=== PATIENT | male | born 1960 | race Caucasian/White ===

== ENCOUNTER 2023-09-16 13:16 | Emergency (ER) | payer BC, SELFPAY ==
[2023-09-16 13:18] VITALS: BP 223/134; PULSE 127; RESP 22; TEMP 37.7; O2SAT 98; BMI 37.3
--- NOTE | 2023-09-16 13:38 | EKG12_ITS ---
Test Reason : CP Blood Pressure : / mmHG Vent. Rate : 114 BPM Atrial Rate : 114 BPM P-R Int : 120 ms QRS Dur : 084 ms QT Int : 332 ms P-R-T Axes : 045 037 066 degrees QTc Int : 457 ms Sinus tachycardia Otherwise normal ECG Confirmed by BERRY AGUILAR, JAMES ([id number]), editor in chief GRAY ELISE ([id number]) on 09/18/2023 11:55:34 AM Referred By: Confirmed By:JAMES SMART MD
--- NOTE | 2023-09-16 13:41 | EX.ED.DYSGE1 ---
HPI History of Present Illness Chief Complaint: Chest Pain Narrative Narrative: Patient is a 63-year-old male who is presenting to the ER with chest tightness, elevated blood pressure and tachycardia. Patient stopped taking his blood pressure medication because he did not like the side effects. Patient stopped taking his medication several months ago. Patient stated it caused some nausea and feeling tired. Patient does a lot of driving during the day, did not like the way it made him feel, so he stopped taking it 2 months ago. Patient lifted 5-6 bags of 40-50 pound salt bags yesterday which is not something he normally does. Patient had no pain last evening. Patient did develop the pain around 9:00 this morning. Patient feels better with his right arm raised above his head, he has no rash. Patient has no headache or neck pain. No chest pain or heavy tightness, patient states that the right-sided chest discomfort. No radiation. No nausea, vomiting, diarrhea, any other acute complaints. Patient's PCP is not aware the patient stopped taking his blood pressure medications several months ago. Patient's blood pressure initially was very elevated, heart rate was elevated as well. Patient daughter at bedside. Patient is not diabetic, no cholesterol. Patient has never had a stress test or echocardiogram previously. Patient is not certain which medications he is supposed to be taking, he supposed be taking a type of blood pressure med and a diuretic, 2 tablets that he is not taking any longer for the past several months. PFSH PFSH Allergy/AdvReac Type Severity Reaction Status Date / Time Penicillins AdvReac Mild Nausea Verified 09/16/23 14:16 Social History Smoking Status: Never smoker ROS ROS ED ROS Narrative REVIEW OF SYSTEMS: Unless otherwise stated in this report the patient's positive and negative responses for review of systems for constitutional, eyes, ENT, cardiovascular, respiratory, gastrointestinal, neurological, , musculoskeletal, and integument systems and related systems to the presenting problem are either stated in the history of present illness or were not pertinent or were negative for the symptoms and/or complaints related to the presenting medical problem. EXAM Physical Exam Narrative Exam Narrative: Vital signs reviewed and patient is not hypoxic. Lateral manual blood pressures were done, please see nursing notes, General: The patient appears well and in no apparent distress. Patient is resting comfortably on cart. Not toxic, lethargic, or listless. When I walk into the room, patient has his right arm raised above his head which she is holding because states the pain is better with his hand elevated. Patient has no neck pain. No radiculopathy or paresthesias into his upper extremities. No rash. Skin: Warm, dry, no pallor noted. There is no rash noted. Head: Normocephalic, atraumatic Eye: Normal conjunctiva, no drainage, EOMI. PERRL. Ears, Nose, Mouth, and Throat: oral mucosa is moist. Nares patent. Mouth without vesicles. Cardiovascular: Regular Rate and Rhythm, no murmurs, gallops, or rubs. No reproducible tenderness to palpation to the bilateral anterior, lateral, posterior chest wall. Respiratory: Patient is in no distress, no accessory muscle use, lungs are clear to auscultation, no wheezing, rales or rhonchi Back: non-tender, no CVA tenderness bilaterally to percussion. NO CTLS midline or paraspinal tenderness to palpation. GI: Soft, no tenderness to palpation, no masses appreciated. No rebound, guarding, or rigidity noted. Musculoskeletal: The patient has full range of motion of all extremities and joints with no difficulty. Patient has no motor, no sensory deficits. Neurological: A&O x4, normal speech, no focal neurological deficits. Psychiatric: Cooperative Const Vital Signs: 09/16/23 13:18 09/16/23 13:38 09/16/23 13:17 Temperature 99.9 F H Temperature Source Temporal Pulse Rate 127 H Respiratory Rate 22 H Respiratory Effort Short of Breath Blood Pressure 223/134 H Blood Pressure Mean 163 Pulse Ox 98 Oxygen Delivery Method Room Air Room Air 09/16/23 14:17 Temperature Temperature Source Pulse Rate 104 H Respiratory Rate 20 H Respiratory Effort Blood Pressure 201/103 H Blood Pressure Mean 135 Pulse Ox 96 Oxygen Delivery Method Room Air MDM MDM MDM Narrative Medical decision making narrative: Patient had bilateral manual blood pressures done, equal to both arms. Patient was given 1 dose of metoprolol. Patient had education on medical noncompliance at bedside and the risk of significant cardiovascular disease. Patient will follow-up with his PCP, start taking medication again and follow-up to see what other medications or combination of medications can be prescribed so he is not feeling tired or nauseated. Patient understands the need for outpatient stress test and echocardiogram and additional testing patient daughter at bedside as well, no questions at discharge. Lab Data Attestation: I reviewed the patient's lab results. Labs: Laboratory Results - last 24 hr 09/16/23 13:36 WBC 9.1 RBC 5.53 Hgb 16.6 H Hct 50.0 MCV 90.4 MCH 30.0 MCHC 33.2 RDW Std Deviation 46.5 H RDW Coeff of [place] 13.9 Plt Count 249 MPV 9.6 Immature Gran % (Auto) 1.100 H Neut % (Auto) 70.4 H Lymph % (Auto) 15.2 L [place] % (Auto) 10.9 H Eos % (Auto) 2.0 Baso % (Auto) 0.4 Absolute Neuts (auto) 6.4 Absolute Lymphs (auto) 1.38 Nucleated RBC % 0 Sodium 137 Potassium 3.8 Chloride 107 Carbon Dioxide 25.0 Anion Gap 5 BUN 22 H Creatinine 1.05 Estim Creat Clear Calc 76.28 Est GFR (MDRD) Af Amer 92 Est GFR (MDRD) Non-Af 76 BUN/Creatinine Ratio 21.0 H Glucose 130 H Calcium 8.9 Magnesium 2.1 Troponin I High Sens 9 B-Natriuretic Peptide 14.9 Radiography Chest X-Ray - ED: Read by ED Physician (Chest x-ray shows no acute cardiopulmonary disease, infiltrate, no effusion) Diagnostic Testing: Clinical Impression(s) from Imaging Studies Chest X-Ray 09/16/23 13:55 IMPRESSION: Elevated left hemidiaphragm with some left lower lobe atelectasis. Cardiomegaly. Electronically Signed: Cristian Farrell MD at 14:32 EDT , EKG Initial EKG: Attestation: I personally reviewed and interpreted this EKG as follows: Comments: EKG interpretation. Sinus tachycardia at 114, normal axis deviation. No acute ST elevation, no acute ectopy. QTc of 457. Discharge Plan Triage Chief Complaint: Chest Pain ED Provider: Pablito Cook Dx/Rx/DC Orders Clinical Impression: Medical non-compliance, Chest pain, HTN (hypertension) Instructions: ED Chest Pain, Noncardiac, ED Chest Pain, Uncertain Cause, ED Hypertension, Established Primary Care Provider: Kyle Aguayo Referrals: NOT,DEFINED [Non-Staff] - Activity Restrictions/Additional Instructions: DiffuseSwelling start taking your medication as prescribed. Call your PCP tomorrow to what additional or different medication and dosing you can be taking for elevated blood pressure. You have never had a stress test or echocardiogram, this is something strongly recommended to be done as an outpatient which your family doctor can help order. If you continue to not take blood pressure medication and continue with significant elevated blood pressures, your cardiovascular risk of heart attack, stroke, and poor outcomes are extremely high. Disposition Disposition: Home, Self Care
--- NOTE | 2023-09-16 13:55 | RAD_ITS ---
STUDY: X-RAY CHEST REASON FOR EXAM: Male, 63 years old. chest pain TECHNIQUE: Single AP portable view of the chest. COMPARISON: None. FINDINGS: The lungs are clear and expanded. Elevated left hemidiaphragm with some left lower lobe atelectasis. There is moderate cardiac enlargement. Normal mediastinum and radha. Normal visualized pulmonary arteries. Normal visualized aortic arch and descending thoracic aorta. Normal visualized thoracic spine. Normal visualized ribs, clavicles, and shoulders. There is no demonstrated abnormality of the visualized soft tissue structures of the upper abdomen. RAD/Chest 1 View (Portable) IMPRESSION: Elevated left hemidiaphragm with some left lower lobe atelectasis. Cardiomegaly. Electronically Signed: Cristian Farrell MD at 14:32 EDT ,
[2023-09-16 14:03] LABS: Absolute Lymphocyte Count 1.38 X10^3/uL (0.83-4.51); Absolute Neutrophil Count 6.4 X10^3/uL (2.0-7.7); Basophil# 0.04 X10^3/uL; Basophil% 0.4 % (0-1); Eosinophil# 0.18 X10^3/uL; Hemoglobin 16.6 g/dL (13.0-16.5); Lymphocyte # 1.38 X10^3/ul (0.83-4.51); Lymphocyte % 15.2 % (19-41); Mean Corp Hgb Conc 33.2 g/dL (32-36); Mean Corpuscular Volume 90.4 fL (80-94); Mean Platelet Vol. 9.6 fl (6.2-12.0); Monocyte# 0.99 X10^3/uL; Monocyte% 10.9 % (0-10); NRBC Flagged by Analyzer 0 % (0-5); Neutrophil # 6.41 X10^3/uL (2.7-7.7); Neutrophil % 70.4 % (47-70); Platelet Count 249 K/mm3 (150-450); RBC Distribution Width CV 13.9 % (11.6-14.6); RBC Distribution Width SD 46.5 fl (35.1-43.9); Red Blood Count 5.53 M/mm3 (4.6-6.2); White Blood Count 9.1 K/mm3 (4.4-11.0)
[2023-09-16] MEDS: 0.9% Normal Saline (1000mL) 1,000 ML 1000 ML IV (14:09)
[2023-09-16] MEDS: Aspirin 81 MG TAB.CHEW 324 MG PO (14:09)
[2023-09-16 14:17] VITALS: BP 201/103; PULSE 104; RESP 20; O2SAT 96
[2023-09-16 14:20] LABS: Anion Gap 5 (5-15); BUN 22 mg/dL (7-18); Calcium,Total 8.9 mg/dL (8.5-10.1); Chloride 107 mmol/L (98-107); Creatinine, Serum 1.05 mg/dL (0.70-1.30); EST Glomerular Filtration Rate 76 mL/min (>60); Est Glom Filt Rate - Afr Amer 92 mL/min (>60); Estimated Creatinine Clearance 76.28 ml/min; Glucose 130 mg/dL (74-106); Magnesium 2.1 mg/dL (1.6-2.6); Potassium 3.8 mmol/L (3.5-5.1); Sodium Level 137 mmol/L (136-145); Troponin-I HS (w/2H Reflex) 9 pg/mL (3.0-78.0)
[2023-09-16 14:21] LABS: BNP,B-Type NATRIURETIC PEPTIDE 14.9 pg/mL (0-100)
[2023-09-16 15:58] LABS: Reflex Troponin-HS? (from REC) Y
== END 2023-09-16 15:37 | disposition home or self-care (01) ==
PROVIDERS: Emergency Provider Emergency Medicine; PCP Family Medicine; Visit Provider Emergency Medicine
DX: R07.9 Chest pain, unspecified (principal); R00.0 Tachycardia, unspecified; I10 Essential (primary) hypertension; Z79.899 Other long term (current) drug therapy; Z91.148 Patient's other noncompliance with medication regimen for other reason
CPT/HCPCS: 71045; 80048; 83735; 83880; 84484; 85025; 93005; 96360; 99284; J7030; A4216

== ENCOUNTER → 2023-09-24 | Outpatient (CLI) | payer BC, SELFPAY ==
[2023-09-24 10:46] LABS: D-Dimer Quantitative (DVT/PE) 0.49 FEU/ug/m (0.27-0.49)
== END | disposition home or self-care (01) ==
LOC: LABSPEC 10:15
PROVIDERS: PCP Family Medicine; Referring Provider Nurse Practitioner Family; Visit Provider Nurse Practitioner Family
DX: R07.9 Chest pain, unspecified (principal); M54.9 Dorsalgia, unspecified; M79.601 Pain in right arm; R06.02 Shortness of breath; R14.0 Abdominal distension (gaseous); R11.0 Nausea; K76.0 Fatty (change of) liver, not elsewhere classified
CPT/HCPCS: 85379

== ENCOUNTER → 2023-11-09 | Outpatient (CLI) | payer BC, SELFPAY | END | disposition home or self-care (01) | LOC: PSN 08:02 | PROVIDERS: PCP Family Medicine; Referring Provider Nurse Practitioner Gerontology; Visit Provider Nurse Practitioner Gerontology | DX: R00.0 Tachycardia, unspecified (principal) | CPT/HCPCS: 93225; 93226 ==

== ENCOUNTER → 2023-12-20 | Outpatient (CLI) | payer BC, SELFPAY | END | disposition home or self-care (01) | LOC: SL 11:34 | PROVIDERS: PCP Family Medicine; Referring Provider Nurse Practitioner Family; Visit Provider Nurse Practitioner Family | DX: G47.10 Hypersomnia, unspecified (principal); E66.9 Obesity, unspecified; Z68.39 Body mass index [BMI] 39.0-39.9, adult | CPT/HCPCS: 95806 ==

== ENCOUNTER → 2024-01-01 | Outpatient (CLI) | payer BC, SELFPAY ==
[2024-01-01 17:25] LABS: Thyroid Stim Hormone (TSH) 1.89 uIU/mL (0.358-3.74)
--- OUTSIDE RECORDS SUMMARY | 2024-01-01 19:58 | XMS RPT_ITS | CCD ---
Author Name Unknown Address [address] [place] [address] Organization [facility] Care Team Providers Care Line Runner Name Role Phone Bee Mora MD Primary Care Provider BEE MORA Consulting Unavailable MADELIN TURNER Attending Unavailable MADELIN TURNER Primary Care Unavailable MADELIN TURNER Admitting Unavailable BEE MORA Referring Unavailable PROVIDER, UNKNOWN Consulting Unavailable Bee Mora MD Primary Care Provider LOGAN AILYN Referring Unavailable ELDERBROCK, BEE Danay Primary Care Unavailable ELDERBROCK, BEE D Primary Care Unavailable LOGAN, AILYN Attending Unavailable RANDI COLÓN Referring Unavailable ELDERBROCK, BEE D Primary Care Unavailable RANDI COLÓN Attending Unavailable KASSANDRABROCK, BEE D Primary Care Unavailable ELDERBROCK, BEE D Referring Unavailable TANNRANDI CAPUTO Attending Unavailable ELDERBROCK, BEE D Primary Care Unavailable ELDERBROCK, BEE D Referring Unavailable ELDERBROCK, BEE Danay Primary Care Unavailable ELDERBROCK, BEE Danay Primary Care Unavailable RANDI COLÓN Referring Unavailable ELDERBROCK, BEE D Primary Care Unavailable RANDI COLÓN Attending Unavailable ELDERBROCK, BEE D Primary Care Unavailable LOGAN, AILYN Referring Unavailable ELDERBROCK, BEE D Primary Care Unavailable LOGAN, AILYN Referring Unavailable ELDERBROCK, BEE D Primary Care Unavailable LOGAN, AILYN Referring Unavailable LOGAN, AILYN Referring Unavailable ELDERBROCK, BEE D Primary Care Unavailable LESLI FITCH Attending Unavailable JENS MULLEN Referring Unavailable ELDERBROCK, BEE D Primary Care Unavailable LESLI FITCH Referring Unavailable ELDERBROCK, BEE D Primary Care Unavailable Allergies Allergy Classification Reported Allergen(s) Allergy Type Date of Onset Reaction(s) Facility (20 sources) Penicillin G; Translations: [PENICILLIN G] Drug Allergy 08-07-[address] [facility] Work Phone: (1 source) Penicillin Drug Allergy [facility] Repository (2 sources) carvedilol; Translations: [CARVEDILOL] Drug Allergy 11-02-2023 [facility] Repository (2 sources) Metoprolol; Translations: [METOPROLOL] Drug Allergy 11-02-2023 [facility] Repository Medications Current Medications Medication Drug Class(es) Dates Sig (Normalized) Sig (Original) acetaminophen 325 mg / HYDROcodone bitartrate 5 mg oral tablet (7 sources) Opioid Agonist Start: 09-24-2023 End: 09-29-2023 take 1 tablet by mouth every eight hours as needed for pain HYDROcodone-aceta minophen (NORCO) 5-325 mg per tablet Indications: Right-sided chest pain , Upper back pain , Right arm pain , Exertional chest pain , SOB (shortness of breath) on exertion Take 1 tablet by mouth every 8 hours as needed for pain for up to 5 days. 15 tablet 0 09/24/2023 09/29/2023 Active Completed/Discontinued Medications Medication Drug Class(es) Dates Sig (Normalized) Sig (Original) amLODIPine 10 mg oral tablet (20 sources) Dihydropyridine Calcium Channel Anival Start: 01-12-2022 End: 02-09-2023 take 1 tablet by mouth once daily amLODIPine (NORVASC) 10 mg tablet Take 1 tablet by mouth once daily. 90 tablet 3 02/09/2023 Active Problems Active Problems Problem Classification Problem Date Documented Da te Episodic/Chronic Calculus of urinary tract (4 sources) Kidney stone; Translations: [Calculus of kidney] Onset: 11-16-2023 09-26-2023 Episodic Cardiac dysrhythmias (5 sources) Tachycardia; Translations: [Tachycardia, unspecified] Onset: 09-20-2023 10-01-2023 Episodic Disorders of lipid metabolism (20 sources) Hyperlipidemia; Translations: [Hyperlipidemia, unspecified] Onset: 04-11-2014 04-11-2014 Chronic Essential hypertension (20 sources) Essential hypertension; Translations: [Essential (primary) hypertension] Onset: 02-28-2017 Chronic Hyperplasia of prostate (2 sources) Large prostate ; Translations: [Benign prostatic hyperplasia without lower urinary tract symptoms] Onset: 11-16-2023 09-26-2023 Chronic Nausea and vomiting (4 sources) Nausea; Translations: [Nausea] Onset: 09-24-2023 09-24-2023 Episodic Nonspecific chest pain (11 sources) Right sided chest pain; Translations: [Chest pain, unspecified] Onset: 09-20-2023 09-24-2023 Episodic Other aftercare (1 source) Encounter for follow-up examination after completed treatment for conditions other than malignant neoplasm; Translations: [Hospital discharge follow-up] Onset: 09-20-2023 Episodic Other connective tissue disease (2 sources) Pain in right arm; Translations: [Pain in right arm] 09-24-2023 Episodic Other connective tissue disease (1 source) Pain in right arm; Translations: [Right arm pain] Onset: 09-24-2023 Episodic Other diseases of kidney and ureters (1 source) Other obstructive and reflux uropathy; Translations: [BPH with obstruction/lower urinary tract symptoms] Onset: 11-16-2023 Episodic Other gastrointestinal disorders (1 source) Abdominal bloating; Translations: [Abdominal distension (gaseous)] 09-24-2023 Episodic Other gastrointestinal disorders (3 sources) Abdominal distension, gaseous; Translations: [Abdominal distension (gaseous)] 09-24-2023 Episodic Other gastrointestinal disorders (2 sources) Abdominal distension (gaseous); Translations: [Abdominal bloating] Onset: 09-24-2023 Episodic Other liver diseases (20 sources) Steatosis of liver; Translations: [Fatty (change of) liver, not elsewhere classified] Onset: 04-11-2014 Chronic Other liver diseases (1 source) Fatty (change of) liver, not elsewhere classified; Translations: [Hepatic steatosis] Onset: 09-24-2023 Chronic Other lower respiratory disease (4 sources) Dyspnea on exertion; Translations: [Shortness of breath] 09-24-2023 Episodic Other lower respiratory disease (1 source) Shortness of breath; Translations: [SOB (shortness of breath) on exertion] Onset: 09-24-2023 Episodic Other nervous system disorders (20 sources) Disorder of the peripheral nervous system; Translations: [Hereditary and idiopathic neuropathy, unspecified] Onset: 06-14-2007 03-21-2021 Chronic Other nutritional; endocrine; and metabolic disorders (1 source) Obesity, unspecified; Translations: [Class 2 obesity with body mass index (BMI) of 39.0 to 39.9 in adult, unspecified obesity type, unspecified whether serious comorbidity present] Onset: 11-16-2023 Chronic Other nutritional; endocrine; and metabolic disorders (1 source) Body mass index (BMI) 39.0-39.9, adult; Translations: [Class 2 obesity with body mass index (BMI) of 39.0 to 39.9 in adult, unspecified obesity type, unspecified whether serious comorbidity present] Onset: 11-16-2023 Chronic Other screening for suspected conditions (not mental disorders or infectious disease) (2 sources) Encounter for screening for diabetes mellitus; Translations: [Encounter for screening for malignant neoplasm of prostate] Onset: 09-20-2023 Episodic Other upper respiratory infections (1 source) Bacterial sinusitis; Translations: [Chronic sinusitis, unspecified] Chronic Residual codes; unclassified (1 source) Sleep disorder, unspecified; Translations: [Sleep disturbances] Onset: 11-16-2023 Episodic Spondylosis; intervertebral disc disorders; other back problems (3 sources) Backache; Translations: [Dorsalgia, unspecified] Onset: 09-24-2023 09-24-2023 Episodic Past or Other Problems Problem Classification Problem Date Documented Da te Episodic/Chronic Residual codes; unclassified (20 sources) Family history of diabetes mellitus; Translations: [Family history of diabetes mellitus] Onset: 06-14-2007 06-14-2007 Episodic Results Test Name Value Interpretation Reference Range Facil ity Vital Signs Date Time Vital Sign Value Performing Clinician Faci lity 09-19-2022 10:31-0400 Diastolic blood pressure 106 mm[Hg] Bee Mora MD Work Phone: [facility] 09-19-2022 10:31-0400 Systolic blood pressure 168 mm[Hg] Bee Mora MD Work Phone: [facility] 09-19-2022 10:28-0400 Body temperature 99.9 [degF] Bee Mora MD Work Phone: [facility] 09-19-2022 10:28-0400 Body weight 102.51 kg Bee Mora MD Work Phone: [facility] 09-19-2022 10:28-0400 Heart rate 100 /min Bee Mora MD Work Phone: [facility] 09-19-2022 10:28-0400 Respiratory rate 16 /min Bee Mora MD Work Phone: [facility] Encounters Encounter Date Encounter Type Care Provider Facility Start: 11-16-2023 End: 11-17-2023 ambulatory LESLI FITCH Facility:[id number] Start: 11-16-2023 End: 11-17-2023 ambulatory RANDI COLÓN Facility:[facility] Start: 10-22-2023 End: 10-22-2023 ambulatory BEE MORA Facility:[facility] Start: 10-15-2023 End: 10-15-2023 Subsequent hospital visit by physician Stress Lab [facility] Work Phone: Cardiology Lab Procedures Date Procedure Procedure Detail Performing Clinician Start: 10-08-2023 Echo tthrc r-t 2d w/wom-mode compl spec&colr d Randi Colón CHILD AND YOUTH PROGRAM ASSISTANT.JUNIOR ACCOUNT MANAGER Work Phone: Start: 10-08-2023 LVEF TRANSTHORACIC ECHO Randi Cloón CHILD AND YOUTH PROGRAM ASSISTANT.JUNIOR ACCOUNT MANAGER Work Phone: Start: 09-25-2023 Ct abdomen & pelvis w/o contrast material Bee Mora MD Work Phone: Start: 09-24-2023 Ct thorax w/contrast material Ailyn Perez CHILD AND YOUTH PROGRAM ASSISTANT.JUNIOR ACCOUNT MANAGER Work Phone: Start: 10-07-2022 Lipid 1996 panel - S gallito or Plasma Bee Mora MD Work Phone: Plan of Treatment Date Care Activity Detail Author Start: 10-07-2027 Lipid 1996 panel - Serum or Plasma Lipid Screening [facility] Start: 10-07-2027 LIPID SCREEN LIPID SCREEN [facility] Start: 09-20-2026 Diabetes Screening Diabetes Screening [facility] Start: 02-10-2026 LIPID SCREEN LIPID SCREEN [facility] Start: 10-07-2025 DIABETES SCREEN DIABETES SCREEN [facility] Start: 10-07-2025 Diabetes Screening Diabetes Screening [facility] Start: 10-20-2024 DIABETES SCREEN DIABETES SCREEN [facility] Start: 09-28-2024 Annual PCP Team Chronic Disease Visit Annual PCP Team Chronic Disease Visit [facility] Start: 09-24-2024 Annual PCP Team Chronic Disease Visit Annual PCP Team Chronic Disease Visit [facility] Start: 09-20-2024 Annual PCP Team Chronic Disease Visit Annual PCP Team Chronic Disease Visit [facility] Start: 09-19-2023 ANNUAL PCP TEAM CHRONIC DISEASE VISIT ANNUAL PCP TEAM CHRONIC DISEASE VISIT [facility] Start: 07-20-2023 Influenza vaccination Influenza Vaccine (#1) [facility] Start: 11-19-2022 DEPRESSION ASSESSMENT DEPRESSION ASSESSMENT [facility] Start: 10-19-2022 End: 12-19-2022 CBC panel - Blood by Automated count CBC Lab Routine Essential hypertension Expected: 10/19/2022 (Approximate), Expires: 12/19/2022 [facility] Work Phone: Immunizations Immunization Date Immunization Notes Care Provider Jovani naik 09-13-2016 influenza virus vaccine, unspecified formulation Bee Mora MD Work Phone: [facility] Payers Date Payer Category Payer Unknown JATIN GUAJARDO LIZ O JESSICA [id number] 2022-Present [phone] [address] [place] [address] O [id number] 2022 Unknown [id number] 1960 Unknown [id number] Social History Date Type Detail Facility Start: 03-07-2012 Tobacco smoking stat us NHIS Never smoked tobacco [facility] Start: 03-07-2012 Tobacco use and exposure Smoke less tobacco non-user [facility] Start: 09-19-2022 End: 09-28-2023 Alcohol intake Current drinker of alcohol (finding) [facility] Start: 02-02-2021 End: 10-16-2022 History SDOH Alcohol Frequency [address] [facility] Start: 02-02-2021 End: 09-17-2022 History SDOH Alcohol Std Drinks [address] [facility] Start: 02-02-2021 End: 10-16-2022 History SDOH Social Connections Phone [address] [facility] Start: 02-02-2021 End: 10-16-2022 History SDOH Social Connections Get Together [address] [facility] Start: 02-02-2021 End: 10-16-2022 History SDOH Physical Activity DPW [address] [facility] Start: 02-02-2021 History SDOH Financial [address] [facility] Start: 02-01-2021 Education [address] [facility] Start: 1960 Sex Assigned At Male [facility] Start: 09-09-2022 End: 09-19-2022 Exposure to SARS-CoV-2 (event) Not sure [facility] Start: 10-16-2022 End: 09-25-2023 History of Social function [facility] Start: 10-16-2022 End: 09-25-2023 Social connection and isolation panel [facility] Do you belong to any clubs or organizations such as amish groups, unions, fraternal or athletic groups, or school groups? No [facility] Are you now , , , , never or living with a partner? [facility] How often to you hav e a drink containing alcohol? Never [facility] How many standard dr inks containing alcohol do you have on a typical day? Patient does not drink [facility] How hard is it for y ou to pay for the very basics like food, housing, medical care, and heating Hard [facility] Do you feel stress - tense, restless, nervous, or anxious, or unable to sleep at night because your mind is troubled all the time - these days [OSQ] To some extent [facility] (I/We) worried marlon er (my/our) food would run out before (I/we) got money to buy more. Sometimes true [facility] The food that (I/we) bought just didn't last, and (I/we) didn't have money to get more. Never true [facility] In the past 12 month s, was there a time when you were not able to pay the mortgage or rent on time? Yes [facility] Start: 08-07-2021 Gender identity Identifies as male gender (finding) [facility] Start: 08-07-2021 Sexual orientation Heterosexual ([place]) [facility] Clinical Notes 09-19-2022 to 11-16-2023 Telephone Encounter - Sherice Velasquez RN - 10/12/2023 12:23 PM ESTTelephone Encounter - Kay Herman Ma - 10/09/2023 9:55 AM Salena Terrell RN - 10/08/2023 9:51 AM EST Note Date & Type Note Facility 11-16-2023 Note HNO ID: [id number] Author: Lesli Fitch APRN.JUNIOR ACCOUNT MANAGER Service: ? Author Type: Nurse Practitioner Type: Progress Notes Filed: 11/16/2023 12:02 PM Note Text: [facility] New PATIENT OFFICE VISIT Patient presents with: Benign Prostatic Hypertrophy: PT states he was referred here due to some stones found and an enlarged prostate. XR 10/12/23 HISTORY OF PRESENT ILLNESS Lg Epps is a 63 year old male who is here for an evaluation of KS and BPH. Pt had a CT a/p done 09/25/23 for some abdominal distention. He was noted to have a 5mm R renal stone and several 4mm L renal stones. Also noted to have several bladder calculi measuring up to 5mm in size. No prior hx of KS. FOS strong, no hesitancy, Noct x 0-1, day freq q 3-4 hrs. No hematuria or dysuria. Never any hx of UTIs. PVR was 49ml Review of Systems Constitutional: Negative for appetite change. HENT: Negative for sneezing. Respiratory: Negative for cough. Cardiovascular: Negative for chest pain. Gastrointestinal: Negative for nausea and vomiting. Skin: Negative for rash. Neurological: Negative for facial asymmetry. The remainder of the ROS was reviewed and is negative. LAB Creatinine Date Value Ref Range Status 09/20/2023 0.93 0.73 - 1.22 mg/dL Final No results found for: PSA , PSASC GLUCOSE UA (POCT) (mg/dL) Date Value 11/16/2023 100 (A) BILIRUBIN UA (POCT) (no units) Date Value 11/16/2023 Negative KETONE UA (POCT) (mg/dL) Date Value 11/16/2023 Negative SPECIFIC GRAVITY UA (POCT) (no units) Date Value 11/16/2023 1.020 HEMOGLOBIN/BLOOD UA (POCT) (no units) Date Value 11/16/2023 Trace-intact (A) PH UA (POCT) (no units) Date Value 11/16/2023 7.0 PROTEIN UA (POCT) (mg/dL) Date Value 11/16/2023 Negative UROBILINOGEN UA (POCT) (E.U./dL) Date Value 11/16/2023 0.2 NITRITE UA (POCT) (no units) Date Value 11/16/2023 Negative LEUKOCYTES UA (POCT) (no units) Date Value 11/16/2023 Negative COLOR UA (POCT) (no units) Date Value 11/16/2023 Yellow CLARITY UA (POCT) (no units) Date Value 11/16/2023 Clear ] MEDICATIONS amLODIPine (NORVASC) 10 mg tablet Take 1 tablet by mouth once daily. lisinopril-hydroCHLOROthiazide (ZESTORETIC) 20-25 mg per tablet Take 1 tablet by mouth every morning. 0 HISTORIES PAST MEDICAL HISTORY Diagnosis Date Unspecified hereditary and idiopathic peripheral neuropathy Fall 2004 bilat feet PAST SURGICAL HISTORY Procedure Laterality Date CHOLECYSTECTOMY 1995 RPR 1ST INGUN HRNA AGE 7 YRS/> REDUCIBLE 1998 Hernia repair, inguinal FAMILY HISTORY Problem Relation Age of Onset Diabetes Mother Hypertension Mother Diabetes Maternal Grandmother Diabetes Maternal Grandfather SOCIAL HISTORY Social History Tobacco Use Smoking status: Never Smokeless tobacco: Never Substance Use Topics Alcohol use: Yes Comment: rarely Drug use: No BP 142/73 Ht 174 cm (5' 8.5 ) Wt 119.7 kg (264 lb) BMI 39.56 kg/m? Physical Exam Genitourinary: Comments: JESUS-- smooth, no nodules ASSESSMENT/PLAN: 1. BPH with obstruction/lower urinary tract symptoms [N40.1, N13.8] - ICD9: 600.01, 599.69, ICD10: N40.1, N13.8 (primary diagnosis) Content with urination. - BLADDER SCAN = 49ml - UA shows glucose and trace blood. He is a pre diabetic. 2. Kidney stone - ICD9: 592.0, ICD10: N20.0 CT a/p (09/2023) B renal stones and bladder stones. KUB now. Discussed ESWL at some point. 3. Screening PSA (prostate specific antigen) - ICD9: V76.44, ICD10: Z12.5 PSA with next visit. - PSA/PROSTSPECAG SCRN 4. Bladder stone - ICD9: 594.1, ICD10: N21.0 CT a/p (09/2023) B renal stones and bladder stones. Schedule cysto to confirm. Lesli Fitch APRN.JUNIOR ACCOUNT MANAGER This note was partially created using voice recognition software and is inherently subject to errors including those of syntax and sound-alike substitutions which may escape proofreading. In such instances, original meaning may be extrapolated by contextual derivation. [facility] 11-16-2023 Note HNO ID: [id number] Author: Randi Colón APRN.HARVINDER Service: ? Author Type: Nurse Practitioner Type: Progress Notes Filed: 11/16/2023 8:24 AM Note Text: This is a 63 year old male who presents today with: Patient presents with: Follow Up: sleep study HISTORY OF PRESENT ILLNESS: Lg Epps is a 63 year old male. Patient presents with: Follow Up: sleep study Here in the office for chest pain follow up, cardiology would like a sleep study. ( [facility]). Refers that some nights he does not sleep well. Unsure if he snores or has any apneic episodes. Refers he sleeps in recliner due to breathing, he breaths easier sitting up. Just completed holter monitor 24 hour for cardiology, results still pending. No chest pain since seeing cardiology. Cardiology stopped Toprol XL and started Carvedilol, increase fatigue, stopped medication. Currently monitoring. Next follow up in 8 weeks. PAST MEDICAL HISTORY: PAST MEDICAL HISTORY Diagnosis Date Unspecified hereditary and idiopathic peripheral neuropathy Fall 2004 bilat feet PAST SURGICAL HISTORY Procedure Laterality Date CHOLECYSTECTOMY 1995 RPR 1ST INGUN HRNA AGE 5 YRS/> REDUCIBLE 1997 Hernia repair, inguinal ALLERGIES Penicillin G MEDICATIONS Current Outpatient Medications Medication Sig metoprolol succinate ER (TOPROL XL) 50 mg 24 hr tablet Take 1 tablet by mouth once daily. amLODIPine (NORVASC) 10 mg tablet Take 1 tablet by mouth once daily. lisinopril-hydroCHLOROthiazide (ZESTORETIC) 20-25 mg per tablet Take 1 tablet by mouth every morning. No current facility-administered medications for this visit. FAMILY HISTORY Problem Relation Age of Onset Diabetes Mother Hypertension Mother Diabetes Maternal Grandmother Diabetes Maternal Grandfather Social History Tobacco Use Smoking status: Never Smokeless tobacco: Never Substance Use Topics Alcohol use: Yes Comment: rarely Drug use: No REVIEW OF SYSTEMS GENERAL: No weight loss, malaise or fevers/chills HEENT: Negative for frequent or significant headaches, No changes in hearing or vision. NECK: Negative for lumps, goiter, pain and significant neck swelling RESPIRATORY: Negative for cough, hemoptysis, wheezing, dyspnea or shortness of breath CARDIOVASCULAR: Negative for chest pain, leg swelling, orthopnea, or palpitations GI: No nausea, vomiting, or diarrhea/constipation. No hematochezia/melena. No heartburn or reflux symptoms. : No history of dysuria, frequency or incontinence MUSCULOSKELETAL: Negative for joint pain or swelling. SKIN: Negative for lesions, rash, and itching ENDOCRINE: Negative for cold or heat intolerance, polyuria, polydipsia and goiter NEURO: No history of headaches, syncope, paralysis, seizures or tremors MOOD: Negative for depression, anxiety, or suicidal ideation. EXAM: BP 146/90 Pulse 115 Resp 20 Wt 119.7 kg (264 lb) SpO2 98% PHYSICAL EXAM: General Appearance: Well appearing, alert, in no acute distress, well-hydrated, well nourished. Skin: Skin color, texture, turgor normal, no suspicious rashes or lesions. Head: Normocephalic, no masses, lesions, tenderness or abnormalities. Eyes: Anicteric sclera. Extraocular movements are intact. Lungs: Lungs clear to auscultation. No wheezing, rhonchi, rales. Heart: RRR without murmur, gallop, or rubs. No ectopy. Extremities: No deformities, edema, skin discoloration, clubbing or cyanosis. Good capillary refill. Peripheral Pulses: Normal, Capillary refill <2secs, strong peripheral pulses, Pulses palpable. Neurologic: Gait normal. Sensation grossly intact. ASSESSMENT/PLAN: 1. Sleep disturbances - ICD9: 780.50, ICD10: G47.9 (primary diagnosis) - Order will faxed to [facility]. - POLYSOMNOGRAM (PSG) 2. Class 2 obesity with body mass index (BMI) of 39.0 to 39.9 in adult, unspecified obesity type, unspecified whether serious comorbidity present - ICD9: 278.00, V85.39, ICD10: E66.9, Z68.39 - same plan as #1. 3. Right-sided chest pain - ICD9: 786.50, ICD10: R07.9 - Resolved - Keep scheduled appt with Cardiology. Follow-up pending test results or sooner as needed. Discussed treatment plan and patient voices understanding. Patient's questions answered appropriately. Medications and potential side effects were discussed and patient voices understanding. Randi Colón APRN.HARVINDER This note was partially generated using [employer] voice recognition system. Note was reviewed for accuracy. There may be minor misspellings or grammar miscues with [employer] voice recognition. [facility] 10-12-2023 Miscellaneous Notes Spoke with patient regarding reminder for stress test on Sunday and given instructions documented in this encounter [facility] 10-09-2023 Miscellaneous Notes Broccol-e-gamest message sent to pt notifying him of results and recommendations below from covering Provider. Kay Herman Ma Please let the patient know that his echocardiogram was normal. Continue with plan to get stress testing as scheduled. Vahe White APRN.CNP documented in this encounter [facility] 10-08-2023 Note HNO ID: [id number] Author: Salena Ludwig RN Service: ? Author Type: Registered Nurse Type: Progress Notes Filed: 10/08/2023 9:52 AM Note Text: 24 ga angio started to right a/c. Good blood return. Flushed easily with NSS. Dressing applied. Definity (Lot #[id number] exp 05/19/24) mixed per protocol. cc administered throughout procedure. cc discarded. Pt tolerated procedure well. No C/o's, Hep lock D/c'd and dressing applied. Patient discharged ambulatory with Ostomy Care Nurse. Salena Ludwig RN [facility] 10-08-2023 Miscellaneous Notes The following approved medication requests have been transmitted electronically. Requested Prescriptions Signed Prescriptions Disp Refills metoprolol succinate ER (TOPROL XL) 50 mg 24 hr tablet 30 tablet 5 Sig: Take 1 tablet by mouth once daily. Vahe White APRN.HARIVNDER Updated sig per [facility] notes: Increase Toprol 25 mg twice daily. Pended as appropriate with pharmacy verified. Ashley Morris MA documented in this encounter [facility] 10-08-2023 History of Presen t illness Narrative 24 ga angio started to right a/c. Good blood return. Flushed easily with NSS. Dressing applied. Definity (Lot #[id number] exp 05/19/24) mixed per protocol. cc administered throughout procedure. cc discarded. Pt tolerated procedure well. No C/o's, Hep lock D/c'd and dressing applied. Patient discharged ambulatory with Ostomy Care Nurse. Salena Ludwig RN documented in this encounter [facility] 10-01-2023 Miscellaneous Notes Seen in OV 09/28/23. Zehra Vasquez RN Patient returned call and discussed reason scheduled appt for pain. Patient reports it's the same pain in his right chest, above nipple line, back of upper right arm-from elbow to shoulder, he's been having since Aug. Reports he has seen both Lex Medellin and Lex Robertson, for this same issue. Reports he was seen in Aug in [facility] ER for this, has had imaging done, and other tests done, with no cause found for the pain. Reports he is scheduled with [facility] on 10-30. Reports he continues to take metoprolol for heart, and today HR on POX reading 93-105 with O2 99%. Reports his BP is not high. Reports the pain in right chest/arm, is 7-8/10 with movement, and 5/10 at rest. The pain comes and goes. Reports he has full ROM in right arm- with no pain with movement. When he pushes on the area in right arm, it hurts. Reports the CT showed kidney stones and he will see a urologist for this. Reports the day the heart monitor was placed on him, he had a CT scan and they removed it and never put it back on. Reports the stress test was not scheduled yet, b/c he was told he needs to see research animal attendant first. Patient will discuss at appt today. Patient noted to have appt with Randi Colón CNP for today at 1:40pm for Pain . Attempted to contact patient for further triage. No answer. VM left for pt to call provider's office and ask for a triage nurse to obtain further information. Shelli Vasquez RN documented in this encounter [facility] 10-01-2023 Miscellaneous Notes [employer] notified. Ashley Morris MA Order filed Vahe White APRN.HARVINDER Patient had ZIO monitor placed 09/24/23. Per OV notes 09/28/23 provider documented [address] & tech removed monitor & never replaced. Patient is in need of a new monitor. [employer] company states a new order has to be placed so a new monitor can be mailed to patient. Please file pended order. Ashley Morris MA documented in this encounter [facility] 09-28-2023 Note HNO ID: [id number] Author: Randi Colón APRN.JUNIOR ACCOUNT MANAGER Service: ? Author Type: Nurse Practitioner Type: Progress Notes Filed: 09/28/2023 2:40 PM Note Text: This is a 63 year old male who presents today with: Patient presents with: Chest Pain HISTORY OF PRESENT ILLNESS: Lg Epps is a 63 year old male. Patient presents with: Chest Pain Here in the office for ongoing chest pain. Patient has been seen multiple times, evaluated in the ER with full cardiac work-up which was negative. Saw another provider [facility], several tests completed such as a CT of chest and abdomen. Has appointment with cardiology at the [facility] in October. Last office visit with myself echocardiogram and stress test were ordered. Still having on going right sided chest pain, pain will then start in the right arm. Will wax and wane. Having nausea, diaphoreses, and SOB with the pain. Refers that he was lifting heavy salt bags the day prior to going to the ER initially. This was not disclosed at previous visit. Magalys was taken off for CT scan, should be getting a new one in the mail. CT abdomen pelvis: IMPRESSION: 1. Bilateral subcentimeter nonobstructing renal calculi. No hydronephrosis. 2. Subcentimeter bladder calculi. 3. Enlarged prostate. Correlate with PSA levels. 4. Hepatic steatosis. CT chest: IMPRESSION: No CT evidence of pulmonary embolism. Atelectasis and scarring seen in the bilateral lungs. Focal lucencies in the vertebral bodies with indeterminate etiology. PAST MEDICAL HISTORY: PAST MEDICAL HISTORY Diagnosis Date Unspecified hereditary and idiopathic peripheral neuropathy Fall 2004 bilat feet PAST SURGICAL HISTORY Procedure Laterality Date CHOLECYSTECTOMY 1995 RPR 1ST INGUN HRNA AGE 7 YRS/> REDUCIBLE 1997 Hernia repair, inguinal ALLERGIES Penicillin G MEDICATIONS Current Outpatient Medications Medication Sig HYDROcodone-acetaminophen (NORCO) 5-325 mg per tablet Take 1 tablet by mouth every 8 hours as needed for pain for up to 5 days. metoprolol succinate ER (TOPROL XL) 25 mg 24 hr tablet Take 1 tablet by mouth once daily. amLODIPine (NORVASC) 10 mg tablet Take 1 tablet by mouth once daily. lisinopril-hydroCHLOROthiazide (ZESTORETIC) 20-25 mg per tablet Take 1 tablet by mouth every morning. No current facility-administered medications for this visit. FAMILY HISTORY Problem Relation Age of Onset Diabetes Mother Hypertension Mother Diabetes Maternal Grandmother Diabetes Maternal Grandfather Social History Tobacco Use Smoking status: Never Smokeless tobacco: Never Substance Use Topics Alcohol use: Yes Comment: rarely Drug use: No REVIEW OF SYSTEMS GENERAL: No weight loss, malaise or fevers/chills HEENT: Negative for frequent or significant headaches, No changes in hearing or vision. NECK: Negative for lumps, goiter, pain and significant neck swelling RESPIRATORY: Negative for cough, hemoptysis, wheezing, dyspnea or shortness of breath CARDIOVASCULAR: + Chest Pain/Arm Pain GI: No nausea, vomiting, or diarrhea/constipation. No hematochezia/melena. No heartburn or reflux symptoms. : No history of dysuria, frequency or incontinence MUSCULOSKELETAL: Negative for joint pain or swelling. SKIN: Negative for lesions, rash, and itching ENDOCRINE: Negative for cold or heat intolerance, polyuria, polydipsia and goiter NEURO: No history of headaches, syncope, paralysis, seizures or tremors MOOD: Negative for depression, anxiety, or suicidal ideation. EXAM: BP 142/82 Pulse 117 Resp 18 Wt 118.4 kg (261 lb) SpO2 98% PHYSICAL EXAM: General Appearance: Well appearing, alert, in no acute distress, well-hydrated, well nourished. Skin: Skin color, texture, turgor normal, no suspicious rashes or lesions. Head: Normocephalic, no masses, lesions, tenderness or abnormalities. Eyes: Anicteric sclera. Extraocular movements are intact. Lungs: Lungs clear to auscultation. No wheezing, rhonchi, rales. Heart: RRR without murmur, gallop, or rubs. No ectopy. Extremities: No deformities, edema, skin discoloration, clubbing or cyanosis. Good capillary refill. Musculoskeletal: Right side of chest and back of right arm tender with palpation, Full ROM. Peripheral Pulses: Normal, Capillary refill <2secs, strong peripheral pulses, Pulses palpable. Neurologic: Gait normal. Reflexes normal and symmetric. Sensation grossly intact. Component Latest Ref Rng AND Units 09/20/2023 WBC 3.70 - 11.00 k/uL 10.74 RBC 4.20 - 6.00 m/uL 5.92 Hemoglobin 13.0 - 17.0 g/dL 17.8 (H) Hematocrit 39.0 - 51.0 % 52.8 (H) MCV 80.0 - 100.0 fL 89.2 MCH 26.0 - 34.0 pg 30.1 MCHC 30.5 - 36.0 g/dL 33.7 RDW-CV 11.5 - 15.0 % 14.4 Platelet Count 150 - 400 k/uL 323 MPV 9.0 - 12.7 fL 9.9 Neut% % 67.8 Abs Neut (ANC) 1.45 - 7.50 k/uL 7.29 Lymph% % 19.0 Abs Lymph 1.00 - 4.00 k/uL 2.04 Lynn% % 10.0 Abs Lynn <0.87 k/uL 1.07 (H) Eosi (more content not included)... [facility] 09-26-2023 Miscellaneous Notes Spoke with patient on phone. Kelly Turner MA documented in this encounter [facility] 09-26-2023 Miscellaneous Notes Phone call to patient for claficiation on message. Patient asking if we can get him an appointment with Cardiology sooner than 10/30 at [facility]. Informed patient that he can call to see what they have available, but we do not schedule for them. Patient asked about cardiology in the Clinic, informed pt that he may be able to be seen sooner, but would more than likely have to travel outside of local area. Patient states that he think's his daughter is calling today to see if anything sooner. Asked patient to discuss with his daughter and let us know if we need to send anything/records and to where. Patient also informed again to schedule with Urology - again, patient believes that his daughter is handling that. Pt will speak with daughter and let this office know outcome. Kelly Turner MA Consult placed for urology due to renal and bladder stones as well as enlarged prostate. Randi Colón APRN.HARVINDER documented in this encounter [facility] 09-25-2023 Note HNO ID: [id number] Author: Nella Marsh RT(R) Service: ? Author Type: Filler Sifter Helper Type: Progress Notes Filed: 09/25/2023 3:29 PM Note Text: Radiology Service Progress Note PATIENT NAME: Lg Epps DATE OF SERVICE: September 25, 2023 TIME: 3:29 PM PATIENT IDENTITY VERIFICATION COMPLETED USING TWO (2) IDENTIFIERS: Name and Date of confirmed by patient verbally. FALL SCREENING: Has the patient had 2 falls in the last year or 1 fall with injury or currently using an Ambulatory Assistive Device (Walker, Cane, Wheelchair, Crutches, etc.)? No PATIENT GENDER DATA: Male PATIENT RELEVANT IMPLANT DATA REVIEWED: Yes RADIOLOGY DEPARTMENT: CT; Exam(s) Completed: Abdomen/Pelvis PERIPHERAL IV DATA: Not applicable SIGNED BY: RT Tamica(R) September 25, 2023 3:29 PM [facility] 09-25-2023 History of Presen t illness Narrative Radiology Service Progress Note PATIENT NAME: Lg Epps DATE OF SERVICE: September 25, 2023 TIME: 3:29 PM PATIENT IDENTITY VERIFICATION COMPLETED USING TWO (2) IDENTIFIERS: Name and Date of confirmed by patient verbally. FALL SCREENING: Has the patient had 2 falls in the last year or 1 fall with injury or currently using an Ambulatory Assistive Device (Walker, Cane, Wheelchair, Crutches, etc.)? No PATIENT GENDER DATA: Male PATIENT RELEVANT IMPLANT DATA REVIEWED: Yes RADIOLOGY DEPARTMENT: CT; Exam(s) Completed: Abdomen/Pelvis PERIPHERAL IV DATA: Not applicable SIGNED BY: Nella Zuniga, (R) September 25, 2023 3:29 PM documented in this encounter [facility] 09-25-2023 Miscellaneous Notes Order filed. Kay Herman Ma Order filed Bee Mora MD Previous CT abd/pel order has been discontinued. Pt scheduled for [address] Please file pended STAT order. Kelly Turner MA documented in this encounter [facility] 09-25-2023 Miscellaneous Notes See mychart message. Emily Marte Ma documented in this encounter [facility] 09-24-2023 Miscellaneous Notes Pt informed. Will picker tender helper in main lobby. Form taken to med recs. Belle Barrera Letter is in the outbox in our office. Ailyn Perez APRN.JUNIOR ACCOUNT MANAGER Please see pt message documented in this encounter [facility] 09-24-2023 Miscellaneous Notes Pt informed rx sent to pharmacy [facility] The following approved medication requests have been transmitted electronically. Requested Prescriptions Signed Prescriptions Disp Refills HYDROcodone-acetaminophen (NORCO) 5-325 mg per tablet 15 tablet 0 Sig: Take 1 tablet by mouth every 8 hours as needed for pain for up to 5 days. Ailyn Perez APRN.CNP PDMP website checked and validated. All prescriptions have been APPROPRIATELY filled. No suspicious activity was identified. 09/24/2023 by Ailyn Perez CNP. Pt seen today by Ailyn Perez CNP. Message sent to Randi Colón CNP. I'm not sure who addressed this for pt with pain, routed to both Providers. Kay Herman Ma documented in this encounter [facility] 09-24-2023 Miscellaneous Notes Pt informed, verbalized understanding. Pt asking about pain meds for chest pain? Please advise. Belle Barrera MA Please let him know his d-dimer level looks normal. His abdominal xray shows some air in his bowel, which would attribute to some bloating, but nothing significant. His chest CT does not show any clots. Ailyn Perez APRN.CNP Pt had D-dimer lab checked at [facility]. He was seen by Ailyn Perez today. Result attached below. View External Labs - Miscellaneous Lab [ID [id number]] Emily Marte Ma documented in this encounter [facility] 09-24-2023 Note HNO ID: [id number] Author: Nella Marsh RT(Nash) Service: ? Author Type: Filler Sifter Helper Type: Progress Notes Filed: 09/24/2023 12:38 PM Note Text: Radiology Service Progress Note DATE OF SERVICE: September 24, 2023 TIME: 12:37 PM PATIENT IDENTITY VERIFICATION COMPLETED USING TWO (2) STANDARD IDENTIFIERS: Name and Date of confirmed by patient verbally. FALL SCREENING: Has the patient had 2 falls in the last year or 1 fall with injury or currently using an Ambulatory Assistive Device (Walker, Cane, Wheelchair, Crutches, etc.)? No PATIENT GENDER DATA: Male PATIENT RELEVANT IMPLANT DATA REVIEWED: Yes ALLERGIES: Reviewed and unchanged CONTRAST ALLERGY: NO. EXAM: CT -CONTRAST INDUCED NEPHROPATHY RISK FACTORS: Patient age > 60 years CREATININE: Creatinine Date Value Ref Range Status 09/20/2023 0.93 0.73 - 1.22 mg/dL Final 10/07/2022 0.99 0.73 - 1.22 mg/dL Final 10/20/2021 1.07 0.73 - 1.22 mg/dL Final Estimated Glomerular Filtration Rate Date Value Ref Range Status 09/20/2023 93 >=60 mL/min/1.73m? Final Comment: Estimated Glomerular Filtration Rate (eGFR) is calculated using the 2020 CKD-EPI creatinine equation. This equation utilizes serum creatinine, sex, and age as parameters. The creatinine assay has traceable calibration to isotope dilution-mass spectrometry. Refer to KDIGO guidelines for clinical interpretation. In patients with unstable renal function, e.g. those with acute kidney injury, the eGFR may not accurately reflect actual GFR. eGFR- Date Value Ref Range Status 10/20/2021 >60 Final P.O.C.T. RESULTS: POC done: Yes, See Lab Tab September 24, 2023 TREATMENT: N/A PERIPHERAL IV DATA: Ambulatory: A peripheral IV was started in the Left antecubital site with a Angio cath: 18 gauge. RADIOLOGY DEPARTMENT: CT; Exam(s) Completed: PE Study SIGNATURE: RT Tamica(R) PATIENT NAME: Lg Epps DATE: September 24, 2023 TIME: 12:37 PM [facility] 09-24-2023 Note HNO ID: [id number] Author: Jennie Arango RT(R) Service: Radiology Author Type: Technologist Type: Progress Notes Filed: 09/24/2023 9:51 AM Note Text: Radiology Service Progress Note PATIENT NAME: Lg Epps DATE OF SERVICE: September 24, 2023 TIME: 9:27 AM PATIENT IDENTITY VERIFICATION COMPLETED USING TWO (2) IDENTIFIERS: Name and Date of confirmed by patient verbally. FALL SCREENING: Has the patient had 2 falls in the last year or 1 fall with injury or currently using an Ambulatory Assistive Device (Walker, Cane, Wheelchair, Crutches, etc.)? No PATIENT GENDER DATA: Male PATIENT RELEVANT IMPLANT DATA REVIEWED: Yes RADIOLOGY DEPARTMENT: General X-ray: Exam(s) Completed: Abdomen X-Ray: Abdomen PERIPHERAL IV DATA: Not applicable SIGNED BY: RT Maria(R) September 24, 2023 9:27 AM [facility] 09-24-2023 History of Presen t illness Narrative Radiology Service Progress Note DATE OF SERVICE: September 24, 2023 TIME: 12:37 PM PATIENT IDENTITY VERIFICATION COMPLETED USING TWO (2) STANDARD IDENTIFIERS: Name and Date of confirmed by patient verbally. FALL SCREENING: Has the patient had 2 falls in the last year or 1 fall with injury or currently using an Ambulatory Assistive Device (Walker, Cane, Wheelchair, Crutches, etc.)? No PATIENT GENDER DATA: Male PATIENT RELEVANT IMPLANT DATA REVIEWED: Yes ALLERGIES: Reviewed and unchanged CONTRAST ALLERGY: NO. EXAM: CT -CONTRAST INDUCED NEPHROPATHY RISK FACTORS: Patient age > 60 years CREATININE: Creatinine Date Value Ref Range Status 09/20/2023 0.93 0.73 - 1.22 mg/dL Final 10/07/2022 0.99 0.73 - 1.22 mg/dL Final 10/20/2021 1.07 0.73 - 1.22 mg/dL Final Estimated Glomerular Filtration Rate Date Value Ref Range Status 09/20/2023 93 >=60 mL/min/1.73m Final Comment: Estimated Glomerular Filtration Rate (eGFR) is calculated using the 2020 CKD-EPI creatinine equation. This equation utilizes serum creatinine, sex, and age as parameters. The creatinine assay has traceable calibration to isotope dilution-mass spectrometry. Refer to KDIGO guidelines for clinical interpretation. In patients with unstable renal function, e.g. those with acute kidney injury, the eGFR may not accurately reflect actual GFR. eGFR- Date Value Ref Range Status 10/20/2021 >60 Final P.O.C.T. RESULTS: POC done: Yes, See Lab Tab September 24, 2023 TREATMENT: N/A PERIPHERAL IV DATA: Ambulatory: A peripheral IV was started in the Left antecubital site with a Angio cath: 18 gauge. RADIOLOGY DEPARTMENT: CT; Exam(s) Completed: PE Study SIGNATURE: RT Tamica(Nash) PATIENT NAME: Lg Epps DATE: September 24, 2023 TIME: 12:37 PM documented in this encounter [facility] 09-24-2023 Note HNO ID: [id number] Author: Ailyn Perez APRN.JUNIOR ACCOUNT MANAGER Service: ? Author Type: Nurse Practitioner Type: Progress Notes Filed: 09/24/2023 9:52 AM Note Text: Chief Complaint Patient presents with: Follow Up: Still having chest pain, still needs to schedule with cardio and testing. HPI Lg Epps is a 63 year old male who presents here today for Above Complaints. Today: Still having chest pain. Seems to happen typically with activity. Feels somewhat SOB with this. Improves with rest. However started last night and has been consistent with throbbing. Will move from right chest to right arm to back. Is in one place or the other, switches around. No abdominal pain, little bit of bloating. When has severe pain doesn't feel like eating-some nausea. When not having the pain has a better appetite. When pain is higher, BP is elevated up to 150's systolic. Past medical history, appointments, medications, allergies reviewed. Previous Medical History PAST MEDICAL HISTORY Diagnosis Date Unspecified hereditary and idiopathic peripheral neuropathy Fall 2004 bilat feet Previous Surgical History PAST SURGICAL HISTORY Procedure Laterality Date CHOLECYSTECTOMY 1995 RPR 1ST INGUN HRNA AGE 7 YRS/> REDUCIBLE 1997 Hernia repair, inguinal Family History FAMILY HISTORY Problem Relation Age of Onset Diabetes Mother Hypertension Mother Diabetes Maternal Grandmother Diabetes Maternal Grandfather Patient Allergies ALLERGIES Allergen Reactions Penicillin G Current Medications Current Outpatient Medications on File Prior to Visit Medication Sig metoprolol succinate ER (TOPROL XL) 25 mg 24 hr tablet Take 1 tablet by mouth once daily. amLODIPine (NORVASC) 10 mg tablet Take 1 tablet by mouth once daily. lisinopril-hydroCHLOROthiazide (ZESTORETIC) 20-25 mg per tablet Take 1 tablet by mouth every morning. No current facility-administered medications on file prior to visit. Social History Social History Tobacco Use Smoking status: Never Smokeless tobacco: Never Substance Use Topics Alcohol use: Yes Comment: rarely Drug use: No Review of Symptoms REVIEW OF SYSTEMS See HPI, otherwise negative EXAM: BP 138/82 (BP Site: Left Arm, BP Position: Sitting, BP Cuff Size: Regular Adult) Pulse 111 Wt 117 kg (258 lb) SpO2 98% General Appearance: Well appearing, alert, in no acute distress, well-hydrated, well nourished. and Morbidly obese. Back:no pain to palpation of vertebrae, good flexion and extension, good range of motion, no muscle tenderness, negative SLR test Lungs: Lungs clear to auscultation. No wheezing, rhonchi, rales.. Heart: RRR without murmur, gallop, or rubs. No ectopy. Abdomen: no pain to palpation, +RUQ and LUQ bloating, no organomegaly, BS present x4. Extremities: No deformities, edema, skin discoloration, clubbing or cyanosis. Good capillary refill. . Musculoskeletal: No joint swelling, deformity, or tenderness. Neurologic: Gait normal. Reflexes normal and symmetric. Sensation grossly intact.. Lymph Nodes: No cervical lymphadenopathy and No supraclavicular lymphadenopathy. Psychiatric: pleasant, cooperative. Health Maintenance List Covid-19 Vaccine(1) Never done DTaP,Tdap,Td Vaccine(1 - Tdap) Never done Shingrix Vaccine(1 of 2) Never done Prostate Cancer Screening Discussion due on 09/13/2021 BP Controlled (<130/80) due on 04/22/2022 Colorectal Cancer Screening due on 04/28/2022 RSV Vaccine(1 - 1-dose 60+ series) Never done Depression Assessment Never done Influenza Vaccine(1) due on 07/20/2023 Annual PCP Team Chronic Disease Visit due on 09/20/2024 Diabetes Screening due on 09/20/2026 Lipid Screening due on 10/07/2027 Hepatitis C Screening Completed HIV Screening Discontinued Data reviewed Previous records, office notes ASSESSMENT/PLAN: 1. Right-sided chest pain - ICD9: 786.50, ICD10: R07.9 (primary diagnosis) Chest pain of unclear etiology, patient with significant risk factor(s) of Hypertension and Hyperlipidemia Labs and testing per below. Consider bloating, abdominal etiology as well. Significant distention to bilateral upper abdomen. Recent elevated LFTs and 2016 hepatic steatosis, concern for this etiology as well. - OUTSIDE VENDOR CARDIAC OUTPATIENT EXTENDED RHYTHM RECORDING (WITHOUT TELEMETRY) - CT ABD/PEL W IVCON - IV CONTRAST (RADIOLOGY PROCEDURE) - ENTERIC CONTRAST (RADIOLOGY PROCEDURE) - CT CHEST W IVCON PE - IV CONTRAST (RADIOLOGY PROCEDURE) - D-DIMER - LIPASE BLD - XR ABDOMEN 1V SUPINE 2. Upper back pain - ICD9: 724.5, ICD10: M54.9 Chest pain of unclear etiology, patient with significant risk factor(s) of Hypertension and Hyperlipidemia Labs and testing per below. Consider bloating, abdominal etiology as well. Significant distention to bilateral upper abdomen. Recent elevated LFTs and 2016 hepatic steatosis, concern for this etiology as well. - OUTSIDE VENDOR CARDIFlatpebble (more content not included)... [facility] 09-24-2023 Note HNO ID: [id number] Author: Jayce Moreland MD Service: Cardiovascular Surgery Author Type: Physician Type: Procedures Filed: 10/08/2023 6:37 AM Note Text: Patient Name: Lg Epps : 1960 Ordering Provider: Ailyn Perez Indication: R07.9 Chest pain, unspecified Type of Monitor: Extended Monitoring-Zio Patch Enrollment Dates: 09/24/2023-09/24/2023 [facility] 09-21-2023 Miscellaneous Notes Patient notified of results, verbalizes understanding of instructions. Janette Chen LPN Can you please call the patient and let him know that I reviewed his lab results. Liver enzymes are still elevated, this is more than likely has fatty liver. I would like him to work on lifestyle changes at home. Try to decrease processed foods/higher carbohydrate foods in the diet, increase lean protein, vegetables, and get some form of exercise. Limit alcohol. A1c was 5.7, this is considered prediabetes. Recommend the following lifestyle changes listed above as well. Thyroid testing was normal. Please let me know if he has any questions. Thank you. Randi Colón APRN.JUNIOR ACCOUNT MANAGER documented in this encounter [facility] 09-20-2023 Note HNO ID: [id number] Author: Randi Colón APRN.HARVINDER Service: ? Author Type: Nurse Practitioner Type: Progress Notes Filed: 09/20/2023 9:04 AM Note Text: This is a 63 year old male who presents today with: Patient presents with: Follow Up: ER follow up HISTORY OF PRESENT ILLNESS: Lg Epps is a 63 year old male. Patient presents with: Follow Up: ER follow up HOSPITAL/ER FOLLOW UP: Reason for visit: Chest Tightness, increased blood pressure, and tachycardia Which facility: [facility] ER Date of visit: Diagnosis: Established high blood pressure, noncardiac chest pain, uncertain causes of chest pain. Testing done: CBC, BMP, troponin, and BNP were normal. Chest x-ray normal. EKG showed sinus tachycardia at 114. Normal axis deviation. Treatment given: Given 1 dose of metoprolol to ER. Previously prescribed Zestoretic 20/25 mg and amlodipine 10 mg daily. Current symptoms: When presented to the ER refers that he stopped taking his blood pressure medication 6 months prior due to not liking the side effects. Refers medication cause nausea and tiredness. Still having some ongoing right sided chest pain, seems to wax and wane. Seems worse with activity, sharp throbbing pain. Pain resolves with rest. PAST MEDICAL HISTORY: PAST MEDICAL HISTORY Diagnosis Date Unspecified hereditary and idiopathic peripheral neuropathy Fall 2004 bilat feet PAST SURGICAL HISTORY Procedure Laterality Date CHOLECYSTECTOMY 1996 RPR 1ST INGUN HRNA AGE 5 YRS/> REDUCIBLE 1997 Hernia repair, inguinal ALLERGIES Penicillin G MEDICATIONS Current Outpatient Medications Medication Sig amLODIPine (NORVASC) 10 mg tablet Take 1 tablet by mouth once daily. lisinopril-hydroCHLOROthiazide (ZESTORETIC) 20-25 mg per tablet Take 1 tablet by mouth every morning. No current facility-administered medications for this visit. FAMILY HISTORY Problem Relation Age of Onset Diabetes Mother Hypertension Mother Diabetes Maternal Grandmother Diabetes Maternal Grandfather Social History Tobacco Use Smoking status: Never Smokeless tobacco: Never Substance Use Topics Alcohol use: Yes Comment: rarely Drug use: No REVIEW OF SYSTEMS GENERAL: No weight loss, malaise or fevers/chills HEENT: Negative for frequent or significant headaches, No changes in hearing or vision. NECK: Negative for lumps, goiter, pain and significant neck swelling RESPIRATORY: Negative for cough, hemoptysis, wheezing, dyspnea or shortness of breath CARDIOVASCULAR: + Chest Pain GI: No nausea, vomiting, or diarrhea/constipation. No hematochezia/melena. No heartburn or reflux symptoms. : No history of dysuria, frequency or incontinence MUSCULOSKELETAL: Negative for joint pain or swelling. SKIN: Negative for lesions, rash, and itching ENDOCRINE: Negative for cold or heat intolerance, polyuria, polydipsia and goiter NEURO: No history of headaches, syncope, paralysis, seizures or tremors MOOD: Negative for depression, anxiety, or suicidal ideation. EXAM: BP 140/90 Pulse (!) 128 Resp 16 Wt 117 kg (258 lb) SpO2 97% PHYSICAL EXAM: General Appearance: Well appearing, alert, in no acute distress, well-hydrated, well nourished. Skin: Skin color, texture, turgor normal, no suspicious rashes or lesions. Head: Normocephalic, no masses, lesions, tenderness or abnormalities. Eyes: Anicteric sclera. Extraocular movements are intact. Neck: Supple, no adenopathy; thyroid symmetric, normal size, no bruits. Lungs: Lungs clear to auscultation. No wheezing, rhonchi, rales. Heart: Positive findings: tachycardia, irregular rhythm. Extremities: No deformities, edema, skin discoloration, clubbing or cyanosis. Good capillary refill. Peripheral Pulses: Normal, Capillary refill <2secs, strong peripheral pulses, Pulses palpable. Neurologic: Gait normal. Sensation grossly intact. ASSESSMENT/PLAN: 1. Hospital discharge follow-up - ICD9: V67.59, ICD10: Z09 (primary diagnosis) - Still having on going chest pain since hospital discharge. 2. Chest pain, unspecified type - ICD9: 786.50, ICD10: R07.9 Chest pain of unclear etiology, patient with significant risk factor(s) of Hypertension - Electrocardiogram: An ECG today showed sinus tachycardia at 124 BPM, OR interval 114 ms, QRS duration 90 ms, normal ST-T, QT 332/476 ms/With PVC. - Treatment with metoprolol 25 mg QD - Lab evaluation CMP, CBC, TSH, and Magnesium - Stress testing/Echo- see orders - Referral to Cardiology - Red flag symptoms go to ER. - EXERCISE STRESS ECG (WITHOUT IMAGING) - ECHO - PERFLUTREN LIPID MICROSPHERES 1.1 MG/ML INJECTION IN NS 10 ML - SODIUM CHLORIDE 0.9 % (FLUSH) INJECTION SYRINGE - CONSULT TO CARDIOLOGY - ECG COMPLETE 3. Palpitations - ICD9: 785.1, ICD10: R00.2 - METOPROLOL SUCCINATE ER 25 MG TABLET,EXTENDED RELEASE 24 HR - CBC + DIFF - COMP METABOLIC PANEL - TSH BLD - MAGNESIUM BLD 4. Tachycardia - ICD9: 785.0, (more content not included)... [facility] 09-18-2023 Miscellaneous Notes Pt's insurance has went through and pt scheduled. Pt notified via [email or web address]. No financial needed. Kay Herman Ma Financial clearance still pending review. Insurance cards provided were currently not active. Once approved, can schedule, watch referrals. Kay Herman Ma Pt agreeable to appt with AT on 09/20/23 at 8:00 am. Unable to schedule due to insurance. Asking pt to upload photo of current insurance front/back to input and fully schedule pt. Kay Herman Ma Notified pt via [email or web address] PCP Team has not availability until Thurs/Fri. Asked what day/time works best. Per Provider, Vahe okay with refilling medication until appt. Verified with pt his medication he should be taking and what pharmacy they should be sent to. Wait pt response and schedule him. Kay Herman Ma documented in this encounter [facility] 02-09-2023 Miscellaneous Notes The following approved medication requests have been transmitted electronically. Requested Prescriptions Pending Prescriptions Disp Refills lisinopril-hydroCHLOROthiazide (ZESTORETIC) 20-25 mg per tablet 90 tablet 3 Sig: Take 1 tablet by mouth every morning. Vahe White APRN.CNP Patient phones requesting refills as follows: Requested Prescriptions Pending Prescriptions Disp Refills lisinopril-hydroCHLOROthiazide (ZESTORETIC) 20-25 mg per tablet 90 tablet 3 Sig: Take 1 tablet by mouth every morning. SUZI-09/19/22 Labs-10/07/22 NOV-none med filled 11/09/21 Please review and advise. Janette Chen LPN documented in this encounter [facility] 02-09-2023 Miscellaneous Notes The following approved medication requests have been transmitted electronically. Requested Prescriptions Pending Prescriptions Disp Refills amLODIPine (NORVASC) 10 mg tablet 90 tablet 3 Sig: Take 1 tablet by mouth once daily. Vahe White APRN.CNP Patient phones requesting refills as follows: Requested Prescriptions Pending Prescriptions Disp Refills amLODIPine (NORVASC) 10 mg tablet Sig: Take 1 tablet by mouth once daily. SUZI-09/19/22 Labs-10/07/22 NOV-none med filled 01/12/22 Please review and advise. Janette Chen LPN documented in this encounter [facility] 09-19-2022 History of Presen t illness Narrative Chief Complaint Patient presents with: URI HPI Lg Epps is a 62 year old male who presents here today for URI. Pt scheduled today for an acute visit due to ongoing cold symptoms for the past month or longer. Denies testing for Covid at this time. Pt states that he's been fighting cold symptoms for a month or a little longer. Has taken multiple OTC medication for cold and congestion but this has yet to help him. Denies using any allergy medication. Denies any real congestion down into his chest. At this time pt states his symptoms have slightly improved. He has continued symptoms of runny nose, head congestion, slight STAFFORD (not as severe), slight body aches, with some ear congestion and a slight sore throat. Denies a cough or fever at this time. Symptoms started as nausea, fever, nasal congestion, body aches, sore throat, headache and extreme fatigue. HTN - BP elevated today at OV. Pt states that when he checks his BP at home it's fine. Pt states he's doing well on his current regimen of Amlodipine 10 mg once daily and Prinzide 20-25 mg once daily. Asking about liver tests and if this needs f/u on. Has had slight LFT elevation and fatty liver on US in the past. Last CMP was 11/08 and results were normal. Past medical history, appointments, medications, allergies reviewed. Previous Medical History PAST MEDICAL HISTORY Diagnosis Date Unspecified hereditary and idiopathic peripheral neuropathy Fall 2004 bilat feet Previous Surgical History PAST SURGICAL HISTORY Procedure Laterality Date CHOLECYSTECTOMY 1995 RPR 1ST INGUN HRNA AGE 5 YRS/> REDUCIBLE 1997 Hernia repair, inguinal Family History FAMILY HISTORY Problem Relation Age of Onset Diabetes Mother Hypertension Mother Diabetes Maternal Grandmother Diabetes Maternal Grandfather Patient Allergies ALLERGIES Allergen Reactions Penicillin G Current Medications Current Outpatient Medications on File Prior to Visit Medication Sig amLODIPine (NORVASC) 10 mg tablet Take 1 tablet by mouth once daily. lisinopril-hydroCHLOROthiazide (PRINZIDE, ZESTORETIC) 20-25 mg per tablet Take 1 tablet by mouth every morning. No current facility-administered medications on file prior to visit. Social History Social History Tobacco Use Smoking status: Never Smokeless tobacco: Never Substance Use Topics Alcohol use: Yes Comment: rarely Drug use: No EXAM: BP 168/106 Pulse 100 Temp 37.7 C (99.9 F) (Tympanic) Resp 16 Wt 102.5 kg (226 lb) General Appearance: Well appearing, alert, in no acute distress, well-hydrated, well nourished. and Obese. Head: No facial tenderness with tapping. Ears: External ears normal, canals clear on left side, some congestion noted on right side Neck: Supple, no adenopathy; thyroid symmetric, normal size, no bruits. Lungs: Lungs clear to auscultation. No wheezing, rhonchi, rales.. Heart: RRR without murmur, gallop, or rubs. No ectopy. Health Maintenance List COVID-19 VACCINE(1) Never done DTAP,TDAP,TD(1 - Tdap) Never done SHINGRIX VACCINE(1 of 2) Never done PROSTATE CANCER SCREENING DISCUSSION due on 09/13/2021 DEPRESSION ASSESSMENT Never done BP CONTROLLED (<130/80) due on 04/22/2022 COLORECTAL CANCER SCREENING due on 04/28/2022 INFLUENZA(1) due on 07/20/2022 ANNUAL PCP TEAM CHRONIC DISEASE VISIT due on 01/12/2023 DIABETES SCREEN due on 10/20/2024 LIPID SCREEN due on 02/10/2026 HEPATITIS C SCREENING Completed HIV SCREENING Discontinued Data reviewed None ASSESSMENT/PLAN: 1. Bacterial sinusitis - ICD9: 473.9, 041.9, ICD10: J32.9, B96.89 (primary diagnosis) - Will begin treatment with Doxycycline 2. Essential hypertension - ICD9: 401.9, ICD10: I10 Continue current medications. Follow up in 1 month for BP check 3. Fatty liver - ICD9: 571.8, ICD10: K76.0 Monitor with labs Follow up in 1 month for elevated BP; labs prior. I agree with the Chief Complaint, ROS, and Past Histories independently gathered by the clinical customer support consultant and the remaining scribed note accurately describes my personal service to the patient. Medical Decision Making: Problems: Low: Acute, uncomplicated illness or injury and Stable chronic illness Data: Unique test(s) ordered: 3+ Risk: Moderate: Drug management Medical Decision Making Level: 4 - Moderate Bee Mora MD The documentation for this note was completed by Kay Herman Ma acting as scribe for Bee Mora MD. September 19, 2022 10:40 AM. Kay Herman Ma documented in this encounter [facility] documented [facility] Diagnosis Right-sided chest pain- Primary Upper back pain Right arm pain Pain in limb Exertional chest pain Chest pain, unspecified SOB (shortness of breath) on exertion Shortness of breath documented in this encounter [facility] note* Diagnosis Right-sided chest pain Upper back pain Right arm pain Pain in limb Exertional chest pain Chest pain, unspecified SOB (shortness of breath) on exertion Shortness of breath Abdominal bloating Flatulence, eructation, and gas pain Abdominal distension (gaseous) Flatulence, eructation, and gas pain Nausea Nausea alone Hepatic steatosis Other chronic nonalcoholic liver disease [facility] Diagnosis Abdominal distension (gaseous)- Primary Flatulence, eructation, and gas pain Nausea Nausea alone SOB (shortness of breath) on exertion Shortness of breath Chest pain, unspecified type [facility] Diagnosis Abdominal distension (gaseous) Flatulence, eructation, and gas pain Nausea Nausea alone SOB (shortness of breath) on exertion Shortness of breath Chest pain, unspecified type documented in this encounter [facility] note* Diagnosis Kidney stone- Primary Calculus of kidney Bladder stones Other calculus in bladder Enlarged prostate Hypertrophy of prostate without urinary obstruction and other lower urinary tract symptoms (LUTS) documented [facility] Diagnosis Right-sided chest pain- Primary Tachycardia Tachycardia, unspecified [facility] Diagnosis Chest pain, unspecified type documented in this encounter [facility] note* Diagnosis Palpitations Tachycardia Tachycardia, unspecified documented in this encounter [facility] for visit Narrative* Outpatient Procedure (Routine) - Closed Specialty Diagnoses / Procedures Referred By Dania t Referred To [facility] Diagnoses Chest pain, unspecified type Procedures ECHO ECHO TTHRC R-T 2D W/WOM-MODE COMPL SPEC&COLR D Randi Colón, CHILD AND YOUTH PROGRAM ASSISTANT.JUNIOR ACCOUNT MANAGER [address] [place] [address] [facility] [address] [place] [address] Referral ID Status Reason Start Date Expiration Date V isits Requested Visits Authorized [id number] Closed Auto-Generate d Referral 09/26/2023 11/18/2023 [address] [facility] Reason for Referral Specialty Diagnoses / Procedures Referred By Contac t Referred To Contact Diagnoses Right-sided chest pain Upper back pain Right arm pain Exertional chest pain SOB (shortness of breath) on exertion Ailyn Perez, CHILD AND YOUTH PROGRAM ASSISTANT.JUNIOR ACCOUNT MANAGER [address] [place] [address] Referral ID Status Reason Start Date Expiration Date Visits Re quested Visits Authorized [id number] Closed 1 1 Specialty Diagnoses / Procedures Referred By Contac t Referred To Contact CT IMAGING Diagnoses Right-sided chest pain Upper back pain Right arm pain Exertional chest pain SOB (shortness of breath) on exertion Abdominal bloating Abdominal distension (gaseous) Nausea Hepatic steatosis Procedures CT CHEST W IVCON PE DIAGNOSTIC COMPUTED TOMOGRAPHY THORAX W/CONTRAST Ailyn Perez, CHILD AND YOUTH PROGRAM ASSISTANT.JUNIOR ACCOUNT MANAGER [address] [place] [address] [place] [address] Referral ID Status Reason Start Date Expiration Date V isits Requested Visits Authorized [id number] Closed Auto-Generat ed Referral Patient Cleared - Admin/Chairm an/Director advise to proceed or did not respond 09/24/2023 10/23/2023 1 1 Specialty Diagnoses / Procedures Referred By Contac t Referred To Contact CT IMAGING Diagnoses Abdominal distension (gaseous) Nausea SOB (shortness of breath) on exertion Chest pain, unspecified type Procedures CT ABD/PEL WO IVCON CT ABD & PELVIS W/O CONTRAST Bee Mora MD [address] [place] [address] [place] [address] Referral ID Status Reason Start Date Expiration Date V isits Requested Visits Authorized [id number] Closed Auto-Generate d Referral 09/25/2023 10/24/2024 1 1 Specialty Diagnoses / Procedures Referred By Dania t Referred To Contact Urology Diagnoses Kidney stone Bladder stones Enlarged prostate Procedures CONSULT TO UROLOGY OFFICE/OUTPATIENT NEW HIGH MDM 60-74 MINUTES Randi Colón APRN.JUNIOR ACCOUNT MANAGER [address] [place] [address] Referral ID Status Reason Start Date Expiration Date Visits Requested Visits Authorized [id number] Pending Review PCP Requested Referral 09/26/2023 09/25/2024 1 1 Summary Purpose Family History No Family History Records FoundNo Family History Records FoundNo Family History Records FoundNo Family History Records Found Advance Directives No Advanced Directives Records FoundNo Advanced Directives Records FoundNo Advanced Directives Records FoundNo Advanced Directives Records Found Additional Source Comments Source Comments (unrecognize d section and content) In the event this informatio n is protected by the Federal Confidentiality of Alcohol and Drug Abuse Patient Records regulations: The Federal rules restrict any use of the information to criminally investigate or prosecute any alcohol or drug abuse patient.[facility] the event this information is protected by the Federal Confidentiality of Alcohol and Drug Abuse Patient Records regulations: The Federal rules restrict any use of the information to criminally investigate or prosecute any alcohol or drug abuse patient.[facility] the event this information is protected by the Federal Confidentiality of Alcohol and Drug Abuse Patient Records regulations: The Federal rules restrict any use of the information to criminally investigate or prosecute any alcohol or drug abuse patient.[facility] the event this information is protected by the Federal Confidentiality of Alcohol and Drug Abuse Patient Records regulations: The Federal rules restrict any use of the information to criminally investigate or prosecute any alcohol or drug abuse patient.[facility] the event this information is protected by the Federal Confidentiality of Alcohol and Drug Abuse Patient Records regulations: The Federal rules restrict any use of the information to criminally investigate or prosecute any alcohol or drug abuse patient.[facility] the event this information is protected by the Federal Confidentiality of Alcohol and Drug Abuse Patient Records regulations: The Federal rules restrict any use of the information to criminally investigate or prosecute any alcohol or drug abuse patient.[facility] the event this information is protected by the Federal Confidentiality of Alcohol and Drug Abuse Patient Records regulations: The Federal rules restrict any use of the information to criminally investigate or prosecute any alcohol or drug abuse patient.[facility] the event this information is protected by the Federal Confidentiality of Alcohol and Drug Abuse Patient Records regulations: The Federal rules restrict any use of the information to criminally investigate or prosecute any alcohol or drug abuse patient.[facility] the event this information is protected by the Federal Confidentiality of Alcohol and Drug Abuse Patient Records regulations: The Federal rules restrict any use of the information to criminally investigate or prosecute any alcohol or drug abuse patient.[facility] the event this information is protected by the Federal Confidentiality of Alcohol and Drug Abuse Patient Records regulations: The Federal rules restrict any use of the information to criminally investigate or prosecute any alcohol or drug abuse patient.[facility] the event this information is protected by the Federal Confidentiality of Alcohol and Drug Abuse Patient Records regulations: The Federal rules restrict any use of the information to criminally investigate or prosecute any alcohol or drug abuse patient.[facility] the event this information is protected by the Federal Confidentiality of Alcohol and Drug Abuse Patient Records regulations: The Federal rules restrict any use of the information to criminally investigate or prosecute any alcohol or drug abuse patient.[facility] the event this information is protected by the Federal Confidentiality of Alcohol and Drug Abuse Patient Records regulations: The Federal rules restrict any use of the information to criminally investigate or prosecute any alcohol or drug abuse patient.[facility] the event this information is protected by the Federal Confidentiality of Alcohol and Drug Abuse Patient Records regulations: The Federal rules restrict any use of the information to criminally investigate or prosecute any alcohol or drug abuse patient.[facility] the event this information is protected by the Federal Confidentiality of Alcohol and Drug Abuse Patient Records regulations: The Federal rules restrict any use of the information to criminally investigate or prosecute any alcohol or drug abuse patient.[facility] the event this information is protected by the Federal Confidentiality of Alcohol and Drug Abuse Patient Records regulations: The Federal rules restrict any use of the information to criminally investigate or prosecute any alcohol or drug abuse patient.[facility] the event this information is protected by the Federal Confidentiality of Alcohol and Drug Abuse Patient Records regulations: The Federal rules restrict any use of the information to criminally investigate or prosecute any alcohol or drug abuse patient.[facility] the event this information is protected by the Federal Confidentiality of Alcohol and Drug Abuse Patient Records regulations: The Federal rules restrict any use of the information to criminally investigate or prosecute any alcohol or drug abuse patient.[facility] the event this information is protected by the Federal Confidentiality of Alcohol and Drug Abuse Patient Records regulations: The Federal rules restrict any use of the information to criminally investigate or prosecute any alcohol or drug abuse patient.[facility] the event this information is protected by the Federal Confidentiality of Alcohol and Drug Abuse Patient Records regulations: The Federal rules restrict any use of the information to criminally investigate or prosecute any alcohol or drug abuse patient.[facility] the event this information is protected by the Federal Confidentiality of Alcohol and Drug Abuse Patient Records regulations: The Federal rules restrict any use of the information to criminally investigate or prosecute any alcohol or drug abuse patient.[facility] the event this information is protected by the Federal Confidentiality of Alcohol and Drug Abuse Patient Records regulations: The Federal rules restrict any use of the information to criminally investigate or prosecute any alcohol or drug abuse patient.[facility] the event this information is protected by the Federal Confidentiality of Alcohol and Drug Abuse Patient Records regulations: The Federal rules restrict any use of the information to criminally investigate or prosecute any alcohol or drug abuse patient.[facility] Reason for Visit (unrecogniz ed section and content) Specialty Diagnoses / Procedures Referred By Contac t Referred To Contact Family Medicine / FAMILY MEDICINE Diagnoses flu-mychart message Procedures 4C EST Self Bee Mora MD [address] [place] [address] Referral ID Status Reason Start Date Expiration Date V isits Requested Visits Authorized [id number] Closed Financial Clearance Required - Self Pay Clearance Not Met - Admin/Cigar Head Perforator /Director Advise to Postpone/Omer edule or Not Proceed 09/19/2022 12/18/2022 1 1 Reason Onset Date Comments Refill Request 02/09/2023 Reason Comments Results Labs Reason Comments Radiology CT Specialty Diagnoses / Procedures Referred By Contmia t Referred To Contact CT IMAGING Diagnoses Right-sided chest pain Upper back pain Right arm pain Exertional chest pain SOB (shortness of breath) on exertion Abdominal bloating Abdominal distension (gaseous) Nausea Hepatic steatosis Procedures CT CHEST W IVCON PE DIAGNOSTIC COMPUTED TOMOGRAPHY THORAX W/CONTRAST Ailyn Perez APRN.HARVINEDR [address] [place] [address] [place] [address] Referral ID Status Reason Start Date Expiration Date V isits Requested Visits Authorized [id number] Closed Auto-Generat ed Referral Patient Cleared - Admin/Chairm an/Director advise to proceed or did not respond 09/24/2023 10/23/2023 1 1 Reason Comments STAT orders Specialty Diagnoses / Procedures Referred By Contac t Referred To Contact CT IMAGING Diagnoses Right-sided chest pain Upper back pain Right arm pain Exertional chest pain SOB (shortness of breath) on exertion Abdominal bloating Abdominal distension (gaseous) Nausea Hepatic steatosis Procedures CT ABD/PEL W IVCON CT ABD & PELVIS W/CONTRAST Ailyn Perez APRN.CNP [address] [place] [address] [place] [address] Referral ID Status Reason Start Date Expiration Date V isits Requested Visits Authorized [id number] Closed Auto-Generat ed Referral Patient Cleared - Admin/Chairm an/Director advise to proceed or did not respond 09/24/2023 10/23/2023 2 2 Reason Comments Orders Reason Comments Nurse Triage Call Reason Comments Results [id number] Reason Comments Results Reason Comments Reminder Call Specialty Diagnoses / Procedures Referred By Contac t Referred To Contact [facility] Diagnoses Chest pain, unspecified Procedures REFERRAL TO [facility]SEL[facility] Bee Mora MD [address] [place] [address] [facility] [place] [address] [place] [address] Referral ID Status Reason Start Date Expiration Date Visits Requested Visits Authorized [id number] Closed Financial Clearance Required - OON Payor OON Notification Letter Clearance Not Met - Admin/Cigar Head Perforator/D irector Advise to Postpone/Resched ule or Not Proceed Clearance Not Met - Pt Rescheduled/Canc elled/Chose Not to Proceed 3 12/27/2023 1 1 Care Teams (unrecognized sec tion and content) Line Runner Relationship Specialty Start Date End Date Bee Mora MD [address] [place] [address] PCP - General 09/04/09 Line Runner Relationship Specialty Start Date End Date Bee Mora MD [address] [place], [place] [id number] PCP - General 09/04/09 Line Runner Relationship Specialty Start Date End Date Bee Mora MD [address] [place] [address] PCP - General 09/04/09 Line Runner Relationship Specialty Start Date End Date Bee Mora MD [address] [place] [address] PCP - General 09/04/09 Line Runner Relationship Specialty Start Date End Date Bee Mora MD [address] [place] [address] PCP - General 09/04/09 Line Runner Relationship Specialty Start Date End Date Bee Mora MD [address] [place] [address] PCP - General 09/04/09 Line Runner Relationship Specialty Start Date End Date Bee Mora MD [address] [place] [address] PCP - General 09/04/09 Line Runner Relationship Specialty Start Date End Date Bee Mora MD [address] [place] [address] PCP - General 09/04/09 Line Runner Relationship Specialty Start Date End Date Bee Mora MD [address] [place] [address] PCP - General 09/04/09 Line Runner Relationship Specialty Start Date End Date Bee Mora MD [address] [place] [address] PCP - General 09/04/09 Line Runner Relationship Specialty Start Date End Date Bee Mora MD [address] [place], [place] [address] PCP - General 09/04/09 Line Runner Relationship Specialty Start Date End Date Bee Mora MD [address] [place], [place] [address] PCP - General 09/04/09 Line Runner Relationship Specialty Start Date End Date Bee Mora MD [address] [place], [place] [id number] [facility] - General 09/04/09 Line Runner Relationship Specialty Start Date End Date Bee Mora MD [address] [place] [address] [facility] - General 09/04/09 Line Runner Relationship Specialty Start Date End Date Bee Mora MD [address] [place] [address] [facility] - General 09/04/09 Line Runner Relationship Specialty Start Date End Date Bee Mora MD [address] [place] [address] PCP - General 09/04/09 (unrecognized sect ion and content) No Status Records FoundNo Status Records FoundNo Status Records FoundNo Status Records Found INFORMATION SOURCE (unrecogn ized section and content) DATE CREATED AUTHOR AUTHOR'S ORGANIZ ATION 10/14/2023 [facility] DATE CREATED AUTHOR AUTHOR'S ORGANIZ ATION 11/22/2023 [facility] DATE CREATED AUTHOR AUTHOR'S ORGANIZ ATION 12/07/2023 [facility] Ce nter FOR RECORDS PERTAINING TO PATIENTS WHO ARE OR HAVE BEEN ENROLLED IN A CHEMICAL DEPENDENCY/SUBSTANCEABUSE PROGRAM, SOME INFORMATION MAY BE OMITTED. This clinical summary was aggregated from multiple sources. Caution should be exercised in using it in the provision of clinical care. This summary normalizes information from multiple sources, and as a consequence, information in this document may materially change the coding, format and clinical context of patient data. In addition, data may be omitted in some cases. CLINICAL DECISIONS SHOULD BE BASED ON THE PRIMARY CLINICAL RECORDS. [facility] [employer] [facility]. provides no warranty or guarantee of the accuracy or completeness of information in this document.
== END | disposition home or self-care (01) ==
LOC: LAB 15:51
PROVIDERS: PCP Family Medicine; Referring Provider Internal Medicine Cardiovascular Disease; Visit Provider Internal Medicine Cardiovascular Disease
DX: I10 Essential (primary) hypertension (principal); R06.09 Other forms of dyspnea; R00.0 Tachycardia, unspecified
CPT/HCPCS: 36415; 84443

== ENCOUNTER → 2024-03-11 | Outpatient (CLI) | payer BC, SELFPAY ==
[2024-03-11 13:15] LABS: Anion Gap 5 (5-15); BUN 14 mg/dL (7-18); BUN/Creat Ratio 13.2 RATIO (10-20); Calcium,Total 9.5 mg/dL (8.5-10.1); Chloride 104 mmol/L (98-107); Creatinine, Serum 1.06 mg/dL (0.70-1.30); EST Glomerular Filtration Rate 75 mL/min (>60); Est Glom Filt Rate - Afr Amer 91 mL/min (>60); Glucose 85 mg/dL (74-106); Potassium 3.8 mmol/L (3.5-5.1); Sodium Level 136 mmol/L (136-145)
== END | disposition home or self-care (01) ==
LOC: LAB 11:15
PROVIDERS: PCP Family Medicine; Referring Provider Nurse Practitioner Family; Visit Provider Nurse Practitioner Family
DX: I10 Essential (primary) hypertension (principal); I47.11 Inappropriate sinus tachycardia, so stated
CPT/HCPCS: 36415; 80048

== ENCOUNTER → 2024-04-04 | Outpatient (CLI) | payer BC, SELFPAY | END | disposition home or self-care (01) | LOC: SL 11:40 | PROVIDERS: PCP Family Medicine; Referring Provider Nurse Practitioner Acute Care; Visit Provider Nurse Practitioner Acute Care | DX: Z00.00 Encounter for general adult medical examination without abnormal findings (principal) ==